=== PATIENT | female | born 1990 | race Caucasian/White ===

== ENCOUNTER 2016-12-20 09:57 | Emergency (ER) | payer BC ==
[~2016-12-20] VITALS: Ht 160 cm; Wt 43.0 kg
[~2016-12-20 09:57] MED LIST: ALBUTEROL SULF8.5 GM IH; IMITREX25 MG PO; REGLAN10 MG PO; SPRINTEC1 EACH
[2016-12-20 10:46] LABS: HEMATOCRIT 38.6 % (36.0-46.0); MCH 26.8 PG (29.0-34.0); MCHC 32.4 G/DL (30.0-36.0); MCV 82.8 FL (83-99); MEAN PLAT.VOLUME 11.7 uM^3 (9.5-12.4); PLATELET COUNT 202 K/uL (156-360); RBC DIS.WIDTH-CV 12.3 % (11.8-14.6); RBC DIS.WIDTH-SD 37.2 % (39-53); RED BLOOD COUNT 4.66 M/uL (3.80-5.20); WHITE BLOOD COUNT 14.5 K/uL (4.1-10.2)
[2016-12-20 10:56] LABS: CHLORIDE 110 mEq/L (99-109); POTASSIUM 3.9 mEq/L (3.7-5.4); SODIUM 139 mEq/L (136-147)
[2016-12-20 10:58] LABS: GLUCOSE 114 mg/dL (70-99)
[2016-12-20 10:59] LABS: ANION GAP 11 MEQ/L (2-14)
[2016-12-20 10:59] LABS: ADD MIUA? YES; BILIRUBIN NEGATIVE; BLOOD SMALL; COLOR YELLOW ((YELLOW)); GLUCOSE (STRIP) NEGATIVE; KETONES NEGATIVE; LEUKOCYTES NEGATIVE; NITRITE NEGATIVE; PROTEIN (STRIP) 30; SPECIFIC GRAVITY 1.021 (1.000-1.030); UROBILINOGEN 0.2 MG/DL (0.2-1.0)
[2016-12-20 11:01] LABS: GFR ESTIMATE (CALCULATED) > 59 mL/min/
[2016-12-20 11:02] LABS: UREA NITROGEN (BUN) 14 mg/dL (9-23)
[2016-12-20 11:05] LABS: BACTERIA NONE SEEN /HPF; EPITHELIAL CELLS 1+ /HPF; MUCUS 3+ /LPF; RED BLOOD CELLS 15-20 /HPF (0-5); UCUL ADDED? NO; WHITE BLOOD CELLS 0-5 /HPF (0-5)
[2016-12-20 11:10] LABS: QUANTITATIVE HCG < 4.0 MIU/ML
[2016-12-20 13:39] LABS: AMPHETAMINE NEGATIVE (500 ng/mL); BARBITURATES NEGATIVE (200 ng/mL); BENZODIAZEPINES NEGATIVE (150 ng/mL); COCAINE NEGATIVE (150 ng/mL); METHADONE NEGATIVE (200 ng/mL); METHAMPHETAMINE NEGATIVE (500 ng/mL); OPIATES (MORPHINE) NEGATIVE (100 ng/mL); PHENCYCLIDINE NEGATIVE (25 ng/mL); THC CANNABINOIDS NEGATIVE (50 ng/mL); TRICYCLIC ANTIDEPRESSANTS NEGATIVE (300 ng/mL)
[2016-12-20 13:40] LABS: INTERNAL CONTROLS VALID? YES; OXYCODONE NEGATIVE (100 ng/mL); PROPOXYPHENE NEGATIVE (300 ng/mL)
[2016-12-20] MEDS ORDERED: FLOMAX0.4 MG PO (16:08)
[2016-12-20] MEDS ORDERED: PERCOCET 5/31 TABLET PO (16:08)
[2016-12-20] MEDS ORDERED: TORADOL10 MG PO (16:08)
[2016-12-20] MEDS ORDERED: ZOFRAN4 MG PO (16:09)
[2016-12-20 16:21] VITALS: BP 104/64
== END 2016-12-20 16:30 | disposition home or self-care (01) ==
LOC: EME 09:57
DX: N13.2 Hydronephrosis with renal and ureteral calculous obstruction (principal); J45.909 Unspecified asthma, uncomplicated; F17.200 Nicotine dependence, unspecified, uncomplicated; Z88.6 Allergy status to analgesic agent
CPT/HCPCS: 74176; 80048; 81003; 84702; 85027; 99281; 99284; J1885; J2405; J3010; J7030